=== PATIENT | female | born 1960 | race Caucasian/White ===

== ENCOUNTER → 2017-07-09 | Day surgery (SDC) | payer OTHER ==
[~2017-07-09] VITALS: Ht 170.2 cm; Wt 60.0 kg
[2017-07-09] VITALS (7 sets, daily range): BP systolic 118–140; BP diastolic 74–89; PULSE 52–60; RESP 16; O2SAT 94–96
[~2017-07-09] MED LIST: Acetaminophen IV 1,000 MG in IV Premix 1 EACH IV SCH; BACI1CAP4 PO; Belladonna Alk-Opium 60 mg Rectal Suppository RECTAL ONE; CeFAZolin 2 Gm/50 mL D5W Duplex Bag IV ONE; CeFAZolin Inj 2 GM in IV Premix 1 EACH IV SCH; Dexamethasone 4 mg/mL Inj IVPUSH PRN; EPHEDrine Sulfate 50 mg/mL Inj IVPUSH PRN; HYDROmorphone 1 mg/mL Inj IVPUSH PRN; Lactated Ringer's 1,000 ML IV ONE; Lactated Ringer's 1,000 ML IV SCH; Lactated Ringer's 500 ML IV PRN; MULT-1112 PO; MetoCLOpramide 5 mg/mL 2 mL Inj IVPUSH PRN; Mitomycin Inj 20 MG in Syringe 1 EACH IRRIGATION ONE; Ondansetron 2 mg/mL 2 mL Inj IVPUSH PRN; Phenylephrine 10,000 mCg/mL Inj IVPUSH PRN; [UNRECOGNIZED DRUG - OTHER]; fentaNYL-PF 50 mCg/mL 2 mL Inj IVPUSH PRN; fentaNYL-PF 50 mCg/mL 2 mL Inj ONE
--- NOTE | 2017-07-09 15:23 | PCM.HPANE ---
Patient Data Surgeon Admitting Provider: Attending Provider:Richy Ibarra MD Primary Care Physician:Carlos Cee MD Other Provider:Elodia Riveringham Anesthesia Reason for Visit Bladder Neoplasm Ht/WT & BMI Height (Feet): 5 Height (Inches): 7 Weight (Kilograms): 60.0 Body Mass Index 20.00 Allergies Coded Allergies: No Known Allergies (Verified Allergy, Unknown, 07/09/17) Past Anesthesia History Anesthesia History: Denies:: Abnormal Airway, Anesthesia Reactions, Difficult Intubation, Fam Anesthesia Reaction, Fam Malignant Hypertherm, Malignant Hyperthermia Diabetes History Hx Diabetes?: No MRSA MRSA: No Medications Hypertension Medication: No Home Meds Incl Beta Stu: No Reported Medications Bacillus Coagulans/Inulin (Probiotic Formula Capsule)1 Billion Cell-250 Mg Capsule1 Each PO DAILY 07/03/17 [psoriatene] No Conflict Check1 Tab DAILY 07/03/17 Discontinued Reported Medications Multivit-Min/Iron/Folic/[id number] (Hair, Skin and Nails Tablet)3.3 Mg Iron-25 Mcg Tablet1 Each PO DAILY 07/03/17 History History of ENT Problems?: No HEENT History: Denies:: Abnormal Airway Cataracts Difficult Intubation Dysphagia Glaucoma Hearing Problem Sinus Problem TMJ Denture Type: None Partial- Upper Teeth Condition: Within Normal Limits Missing Teeth Hx of Heart Problems?: No Cardiovascular History: Denies:: AICD Heart Murmur Hypertension Irregular Heartbeat Pacemaker Hx of Respiratory Problem?: No Respiratory History: Denies:: Asthma COPD Emphysema Oxygen Administration Pneumonia Tuberculosis Use of C-PAP Machine Hx Neurologic Problems?: No Neurological History: Denies:: CVA Headaches Multiple Sclerosis Parkinson's Disease Seizures Hx of GI Problems?: No Hx of Problems?: No Genitourinary History: Denies:: Kidney Stones Urinary Tract Infection Other Pertinent History: bladder tumor current admission problem Female Hx: Denies:: Currently Problems with Breasts? Skin History: Denies:: History Skin Disorders? Pressure Ulcers Hx Musculoskeletal Problems?: Yes Musculoskeletal History: Positive for:: Osteoarthritis Denies:: Back Injury Degenerative Joint Fibromyalgia Joint Replacement Musculoskeletal Trauma Myasthenia Gravis Systemic Lupus Hx of Psycho/Social Problems?: No Psycho Social History: Denies:: Anxiety Hx Depression Hx Surgeries?: Yes (dental) Hx Any Other Health Problems?: Yes Other History: Denies:: Cancer Thyroid Disease History Blood Transfusions: Positive for:: Accept Blood Products? Denies:: Blood Transfusions Hx Diabetes: No Hx Alcohol Use: YesAlcoholic Drinks Per Day: one to two glasses weekHx Substance Use: Yes (marijuana- topical and inhale, daily) Smoking Status: Never Smoker Have You Smoked inLast 12 mo: No Stop/Bang S-Snoring: Do You Snore Loudly: No T-Tired: feel tired, fatigued: No O-Obsered: Observed not breath: No P-Blood Pressure: treated: No B- Body Mass Index > 35 kg/m2: No A- Age over 50: Yes N- Neck Large Circumference: No G- Gender Male: No SHANNON Total Score: 1 Risk Assessment Category Category 1A: Patient has history of documented sleep apnea, and HAS NOT received any narcotic, sedative or anesthesia administration during this stay. Category 1B: Patient has history of documented sleep apnea, and HAS received any narcotic , sedative or anesthesia administration during this stay Category 2: Patient has SUSPECTED Obstructive Sleep Apnea, and HAS received any narcotic , sedative or anesthesia administration during this stay. Category 3: Patient has SUSPECTED Obstructive Sleep Apnea and HAS NOT received narcotic, sedative or anesthesia administration during this stay. Category 4: Outpatient in Procedural Areas with known sleep apnea or who screen positive for High Risk via the STOP/BANG questionnaire. Exam Exam Vital Signs Vital Signs Date Time Temp Pulse Resp B/P Pulse Ox O2 Delivery O2 Flow Rate FiO2 07/09/17 13:20 36.5 60 16 134/89 96 Room Air General Appearance: Alert, Oriented X3, Cooperative, No Acute Distress HEENT/AIRWAY: MP 2 Lungs: Clear to Auscultation, Normal Air Movement Heart: Exam Unremarkable, Regular Rate/Rhythm, No Murmurs/Rubs/Gallops Meds/Labs/Diagnostics Admission Meds Current Medications Lactated Ringer's (Lr) 1,000 ml @ 120 mls/hr [id number] ONCE IV Last administered on 07/09/17t 13:35; Start 07/09/17 at 05:00; Stop 07/09/17 at 13:19; Status DC Plan Impression Patient chart reviewed, patient interviewed and anesthestic plan with risks, benefits, and alternatives discussed, and informed consent obtained. ASA Physical Status: ASA1 Normal Healthy Anesthetic Plan: GA Bene/Risks/Altern/Consents: Yes HP Complete Prior to Induction: Yes Bradley Funk MD Jul 09, 2017 15:23
--- NOTE | 2017-07-09 17:30 | PCM.ANEP1 ---
Post Anesthesia PACU Phase 1 Assessment Vital Signs Vital Signs Date Time Temp Pulse Resp B/P Pulse Ox O2 Delivery O2 Flow Rate FiO2 07/09/17 16:53 52 136/80 96 Room Air 07/09/17 16:44 36.7 53 140/88 95 Room Air 07/09/17 16:30 36.1 52 121/78 96 Room Air 07/09/17 16:25 54 125/74 94 Room Air 07/09/17 16:20 57 118/78 95 Room Air 07/09/17 16:16 36.4 128/77 07/09/17 13:20 36.5 60 16 134/89 96 Room Air Anesthetic Administered: GA Level of Alertness: Awake, talking DUMONT's with Equal Strength: Yes Pain: No Nausea or Vomiting: No CV Function & Hydration Stable: Yes Airway Device: Oxygen Delivery: Room Air Lungs: Clear to Auscultation, Normal Air Movement Dermatome Level: Full Sensation PACU Phase 2 Assessment Complications: No Follow up Care: N/A Patient Instructions Provided: Yes Bradley Funk MD Jul 09, 2017 17:30
--- NOTE | 2017-07-10 02:05 | OP ---
[address] [address] OPERATIVE REPORT PATIENT: LEONARDO MCKNIGHT : 1960 MR#: [id number] ADMIT: 07/09/2017 JOB ID: [id number] DATE OF SURGERY: PREOPERATIVE DIAGNOSIS(ES): 1. Hematuria. 2. Papillary neoplasm, right posterior floor and wall. POSTOPERATIVE DIAGNOSIS(ES): 1. Hematuria. 2. Papillary neoplasm, right posterior floor and wall. OPERATION PERFORMED: 1. Transurethral resection of bladder tumor. 2. Instillation of mitomycin-C (20 mg suspended in 20 cc). SURGEON: Richy Ibarra MD ANESTHESIOLOGIST: Bradley Funk MD ANESTHESIA: General. FINDINGS: Urethra normal. Bladder urothelium is normal throughout except for the above-described irregular papillary lesion measuring approximately 2.5 cm. There were no satellite lesions. Orifices were normal bilaterally with clear efflux urine. No diverticulum or stone was seen. PROCEDURE SUMMARY: The patient was positioned in supine, was administered general anesthesia. She was then repositioned in semi-lithotomy. The lower abdomen, genitalia, and groin were prepped and draped in sterile fashion. The 25-[place] Zealander resectoscope was then passed in the lower urinary tract and examination of the bladder revealed the findings as described above. Next, the scope was fitted with the cold cup biopsy forceps, and the above-described lesion was cold resected in its entirety, with three large tumor segments submitted for gross and routine microscopic examination. Next, the Bugbee cautery unit was prepared and the resection base and surrounding area was cauterized for hemostasis. All instrumentation was removed. A 16-[place] Zealander Serna catheter was inserted. The contents of bladder were then drained. Then, 20 mg of mitomycin-C suspended in 20 cc sterile normal saline were then instilled in the bladder and the plug was left in place for anticipated two hour post instillation retention.
--- NOTE | 2017-07-11 17:54 | PATH ---
SURGICAL PATHOLOGY Attending Physician:Richy Ibarra MD CASE STATUS: Signed Out PATIENT NAME: LEONARDO MCKNIGHT PID: [id number] : 1960 DATE COLLECTED:07/09/2017 00:00 SPECIMEN: Bladder, Biopsy CLINICAL HISTORY: BLADDER NEOPLASM 1). RIGHT POSTERIOR BLADDER WALL FINAL DIAGNOSIS: 1.RIGHT POSTERIOR BLADDER WALL, TRANSURETHRAL RESECTION OF BLADDER TUMOR: LOW-GRADE PAPILLARY UROTHELIAL CARCINOMA; SEE CANCER CASE SUMMARY. CANCER CASE SUMMARY Procedure: TURBT. Tumor Site: Right posterior wall Histologic Type: Papillary urothelial carcinoma, noninvasive Histologic grade: Low grade Tumor Configuration: Papillary Muscularis Propria Presence: No muscularis propria identified Lymphovascular Invasion: Not identified Microscopic Tumor Extension: Noninvasive papillary carcinoma [id number] NOTE: As part of a routine director of quality improvement, Dr. Ellis has also reviewed this case and agrees with the diagnosis. GROSS DESCRIPTION: The specimen is received in formalin, labeled with the patient's name, sublabeled as right posterior wall (bladder), and consists of multiple fragments of sims-white glistening semi-translucent papillary friable tissue (0.2 g, 1.8 x 1.0 x 0.3 cm in aggregate). Ink code: black-resection margin. Section code: (A) tissue. Specimen entirely submitted. 07/10/17 JM MICRO DESCRIPTION: See diagnosis. ICD-9 CODES: CPT CODES: 1: 47440 Electronically Signed Out Benny Pittman MD, Ph.D. [facility] [address], [place] [address] Technical component performed at [facility], [address] [place] [address] Ave[address], [place], [address]
== END | disposition home or self-care (01) ==
LOC: SAS 12:45
PROVIDERS: ATTEND Specialist
DX: C67.4 Malignant neoplasm of posterior wall of bladder (principal); M19.90 Unspecified osteoarthritis, unspecified site; Z79.899 Other long term (current) drug therapy
CPT/HCPCS: 52240; J0690; J3010; J7120